=== PATIENT | female | born 1980 | race Caucasian/White ===

== ENCOUNTER 2020-12-29 12:31 | Outpatient (REF) | payer SELFPAY | END 2020-12-29 12:32 | disposition home or self-care (01) | LOC: HO.HAP 12:31 | PROVIDERS: Visit Provider Family Medicine | DX: Z46.1 Encounter for fitting and adjustment of hearing aid (principal); H90.3 Sensorineural hearing loss, bilateral | CPT/HCPCS: 99499; V5299 ==

== ENCOUNTER 2021-08-30 14:06 | Outpatient (REF) | payer SELFPAY | END 2021-08-30 14:07 | disposition home or self-care (01) | LOC: HO.HAP 14:06 | PROVIDERS: Visit Provider Family Medicine | DX: Z13.89 Encounter for screening for other disorder (principal) ==

== ENCOUNTER 2022-01-10 09:56 | Outpatient (REF) | payer SELFPAY | END 2022-01-10 09:57 | disposition home or self-care (01) | LOC: HO.HAP 09:56 | PROVIDERS: Visit Provider Family Medicine | DX: Z46.1 Encounter for fitting and adjustment of hearing aid (principal); H90.3 Sensorineural hearing loss, bilateral | CPT/HCPCS: 92593; 99499 ==

== ENCOUNTER 2022-08-30 12:57 | Outpatient (REF) | payer SELFPAY ==
--- NOTE | 2022-08-30 14:54 | MHC.AU.HA3 ---
Hearing Instrument Follow-Up- Binaural Date of Visit: 08/30/22 Right Ear: Make, Model, Color, Serial Number: Oticon Dynamo SP 8 BTE SN: [id number] Color: Silver [employer] Lean Manufacturing Specialist Repair Warranty: Battery Size: 13 Earmold/Dome/CShell/SlimTip:Microsonic Canal Shell Dispensed By: [facility] Date of Fittin11/14/2016 Left Ear: Make, Model, Color, Serial Number: Oticon Dynamo SP 8 BTE SN: [id number] Color: Silver [employer] Lean Manufacturing Specialist Repair Warranty: Battery Size: 13 Earmold/Dome/CShell/SlimTip: Microsonic Canal Shell Dispensed By: [facility] Date of Fittin11/14/2016 Follow-Up Summary: Cindy returned for routine hearing aid maintenance. Her hearing aids and earmolds were cleaned, microphones vacuumed, and tubing replaced. A listening check demonstrated that the hearing aids are in good working order. Cindy inquired about new hearing aids. Briefly discussed options including Oticon Xceed and Phonak Anastasiia. Cindy reported that she will likely be ready to purchase new hearing aids next year hoping to trial both Oticon and Phonak as she has done in the past. Advised that she would need updated hearing evaluation first. Recommendations: Hearing instrument maintenance in 6 months, or sooner if needed. Recommendations (Other): Cindy will request a doctor's order for a hearing test from her primary care physician when she is ready to begin the process for new hearing aids. Diagnosis Code(s): Primary Diagnosis: H90.3 Bilateral Sensorineural Hearing Loss Signature: Provider: Reese Prasad, [facility]
== END 2022-08-30 12:58 | disposition home or self-care (01) ==
LOC: HO.HAP 12:57
PROVIDERS: Visit Provider Family Medicine
DX: Z46.1 Encounter for fitting and adjustment of hearing aid (principal); H90.3 Sensorineural hearing loss, bilateral
CPT/HCPCS: 92593

== ENCOUNTER 2023-07-06 13:57 | Outpatient (REF) | payer SELFPAY | END 2023-07-06 13:58 | disposition home or self-care (01) | LOC: HO.HAP 13:57 | PROVIDERS: Visit Provider Family Medicine | DX: Z46.1 Encounter for fitting and adjustment of hearing aid (principal); H90.3 Sensorineural hearing loss, bilateral | CPT/HCPCS: 92593 ==

== ENCOUNTER 2023-09-15 09:34 | Outpatient (REF) | payer OTHER, SELFPAY ==
--- NOTE | 2023-09-25 13:45 | MHC.AU.HA3 ---
Hearing Instrument Follow-Up- Binaural Date of Visit: 09/15/23 Right Ear: Make, Model, Color, Serial Number: Oticon Dynamo SP 8 BTE SN: [id number] Color: Silver Huddleston Pneumatic Drum Sander Repair Warranty: 12/04/2019 Pneumatic Drum Sander Loss and Damage Warranty: 12/04/2019 Battery Size: 13 Earmold/Dome/CShell/SlimTip:Microsonic Canal Shell Dispensed By: [facility] Date of Fittin11/14/2016 Left Ear: Make, Model, Color, Serial Number: Oticon Dynamo SP 8 BTE SN: [id number] Color: Silver [employer]udd[employer]eston Pneumatic Drum Sander Repair Warranty: 12/04/2019 Pneumatic Drum Sander Loss and Damage Warranty: 12/04/2019 Battery Size: 13 Earmold/Dome/CShell/SlimTip: Microsonic Canal Shell Dispensed By: [facility] Date of Fittin11/14/2016 Follow-Up Summary: Cindy returned for an updated hearing test to start the process for new hearing aids due to the age of her current pair. She has previously trialed both Oticon and Phonak hearing aids when purchasing new devices and inquired about that process again. Programmed loaner Oticon Xceed BTEs. Ran real ear measures; however, reprogrammed based on Cindy's perception and more similarly to her current Dynamo BTEs. Also provided loaner ConnectClip to trial as Cindy was looking for a remote microphone for her daughter to wear in the back seat while she is driving. Instructed on use. Paired her hearing aids to her cell phone as well. Cindy will email in a couple weeks with an update regarding her experience with the newer Oticon hearing aids. She also inquired about trialing Phonak - will need to request Anastasiia L UPs from [employer] (requested from [employer] surgical sales representative on 09/15/23). Cindy also wanted new ear molds as her current molds are beginning to tear. Impressions taken, bilaterally, without incident (in hold drawer). Due to time constraints, unable to discuss pricing. Will need to provide quote for ear molds before ordering and for hearing aids pending chosen terrazzo worker helper and technology level. Recommendations: Cindy will email to update on her experience with the Oticon loaner hearing aids and an appointment will be scheduled once the new Phonak loaner hearing aids arrive. Diagnosis Code(s): Primary Diagnosis: H90.3 Bilateral Sensorineural Hearing Loss Signature: Provider: Reese Prasad, [facility]
== END 2023-09-15 09:35 | disposition home or self-care (01) ==
LOC: HO.SH 09:34
PROVIDERS: Visit Provider Registered Nurse
DX: Z01.118 Encounter for examination of ears and hearing with other abnormal findings (principal); H90.3 Sensorineural hearing loss, bilateral
CPT/HCPCS: 92557

== ENCOUNTER 2023-11-10 14:56 | Outpatient (REF) | payer SELFPAY ==
--- NOTE | 2023-11-13 11:10 | MHC.AU.HA3 ---
Hearing Instrument Follow-Up- Binaural Date of Visit: 11/10/23 Right Ear: Make, Model, Color, Serial Number: Oticon Dynamo SP 8 BTE SN: [id number] Color: Silver [employer] Athletic Shoe Designer Repair Warranty: 12/04/2019 Athletic Shoe Designer Loss and Damage Warranty: 12/04/2019 Battery Size: 13 Earmold/Dome/CShell/SlimTip:Microsonic Canal Shell Dispensed By: [facility] Date of Fittin11/14/2016 Left Ear: Make, Model, Color, Serial Number: Oticon Dynamo SP 8 BTE SN: [id number] Color: Silver [employer] Athletic Shoe Designer Repair Warranty: 12/04/2019 Athletic Shoe Designer Loss and Damage Warranty: 12/04/2019 Battery Size: 13 Earmold/Dome/CShell/SlimTip: Microsonic Canal Shell Dispensed By: [facility] Date of Fittin11/14/2016 Follow-Up Summary: Cindy reported the new Oticon hearing aids have been difficult to adjust to for several reasons - 1. Cannot tell the difference between P1 and P2; 2. Difficulty self-regulating her own voice; 3. Hearing worse 1-on-1 but better in group; 4. Weird choices on what to amplify (sometimes too loud - background music in store; other times missing things - daughter calling from another room). Looking at programming, P1 was fully directional which may have been contributing to some of the difficulties. Changed directionality in all programs making each program increasingly more directional. She loves the bluetooth capabilities but has a difficult time differentiating when the hearing aids are connected or not connected to her cellphone. With all that, Cindy also wanted to trail the Phonak Anastasiia devices. Programmed Phonak devices with P1, P2, and P3 with increasing noise management settings. Discussed rechargeability and functions of multi-function button (i.e., volume control, program change, mute, on/off). Cindy kept the Oticon hearing aids and ConnectClip to continue trial, comparing to Phonak devices. Fit new ear molds - reportedly tighter than current pair. Because of this, Cindy opted to continue to use her old ear molds during this hearing aid trial to minimize number of variables. She has the new ear molds to keep when she is ready. Advised of six month remake warranty on ear molds. Recommendations: An additional follow up will be scheduled pending Cindy's decision regarding new hearing aids. Diagnosis Code(s): Primary Diagnosis: H90.3 Bilateral Sensorineural Hearing Loss Signature: Provider: Reese Prasad, [facility]
== END 2023-11-10 14:57 | disposition home or self-care (01) ==
LOC: HO.HAP 14:56
PROVIDERS: Visit Provider Registered Nurse
DX: Z46.1 Encounter for fitting and adjustment of hearing aid (principal); H90.3 Sensorineural hearing loss, bilateral
CPT/HCPCS: V5264

== ENCOUNTER 2024-01-05 14:56 | Outpatient (REF) | payer SELFPAY | END 2024-01-05 14:57 | disposition home or self-care (01) | LOC: HO.HAP 14:56 | PROVIDERS: Visit Provider Family Medicine | DX: Z13.89 Encounter for screening for other disorder (principal) ==

== ENCOUNTER 2024-02-21 13:05 | Outpatient (REF) | payer SELFPAY ==
--- NOTE | 2024-02-21 15:24 | MHC.AU.HA2 ---
Hearing Instrument Fitting- Adult- Binaural Date of Visit: 02/21/24 Hearing Instruments Dispensed: Right Ear: Make, Model, Color, Serial Number: [facility] Laurent L90-UP SN: [id number] Color: Silver [employer] Access Assoc Repair Warranty: 02/21/2027 Access Assoc Loss and Damage Warranty: 02/21/2027 [facility] Service Plan: OPTED OUT Battery Size: 675 Earmold/Dome/CShell/SlimTip: Microsonic Canal Shell Left Ear: Make, Model, Color, Serial Number: Sylwia Laurent L90-UP SN: [id number] Color: Silver [employer] Access Assoc Repair Warranty: 02/21/2027 [employer] Loss and Damage Warranty: 02/21/2027 [facility] Service Plan: OPTED OUT Battery Size: 675 Earmold/Dome/CShell/SlimTip: Microsonic Canal Shell Accessories/Assistive Technology: Lester Table Bj II SN: [id number] Warranty: 02/21/2026 Summary of Fitting: Returned all loaner hearing aids and ConnectClip. Fit new hearing aids, programmed to loaner settings. Increased microphone sensitivity slightly in streaming program, otherwise, no adjustments needed. Uploaded Lester receivers into hearing aids and dispensed Lester Table Bj. Instructed on use. Table Bj remote control not functioning - Called [facility] who recommended sending Remote Control in for repair. Cindy opted to trial the Table Bj without the remote to determine if it is even beneficial for her. Sent remote control to [facility]. Will mail to Cindy upon arrival. Cindy did not feel a follow up was necessary at this time - she will email with update, as needed. Recommendations: Hearing Instrument maintenance in 6 months, or sooner if needed. Please call our clinic with any questions or concerns. Diagnosis Code(s): Primary Diagnosis: H90.3 Bilateral Sensorineural Hearing Loss Signature: Provider: Reese Prasad, [facility]
== END 2024-02-21 13:06 | disposition home or self-care (01) ==
LOC: HO.HAP 13:05
PROVIDERS: Visit Provider Family Medicine
DX: Z46.1 Encounter for fitting and adjustment of hearing aid (principal); H90.3 Sensorineural hearing loss, bilateral
CPT/HCPCS: 92590; 92700; V5261; V5267

== ENCOUNTER 2024-06-03 09:32 | Outpatient (REF) | payer SELFPAY | END 2024-06-03 09:33 | disposition home or self-care (01) | LOC: HO.HAP 09:32 | PROVIDERS: Visit Provider Family Medicine | DX: Z46.1 Encounter for fitting and adjustment of hearing aid (principal) | CPT/HCPCS: V5267 ==

== ENCOUNTER 2024-10-31 12:40 | Outpatient (REF) | payer SELFPAY ==
--- OUTSIDE RECORDS SUMMARY | 2024-10-31 15:05 | XMS_ITS | Patient Health Record ---
Author Organization [facility] Address [address] [place] [address] Care Team Providers Care Hoop Bender Tank Name Role Phone NO, PCP Primary Care Provider Unavailabl e Reason For Referral No Information Medications Medication SIG (Take, Route, Frequency, Duration) Notes Start Date End Date Status Reglan 5 MG as directed Orally e very 6 hours as needed for 5 days 08/13/2018 Active Plan Of Treatment Pending Test Test Name Order Date IV FLUIDS- Intravenous Infusion, Hydrati on (up to 1 hour) 08/13/2018 IV FLUIDS- Intravenous infus ion, hydration; each additional hour, the additional time has to be greater than 30 minutes 08/13/2018 Insurance Providers Payer Name Payer Address Payer Phone Subscriber Number Group Number Insured Name Patient Relationship to Insured Coverage Start Date Coverage End Date [employer] P [employer] PATTI [id number] [place] [address] [id number] Cindy Dumas Self - patient is the insured Medical (General) History Medical History History ICD Code Anemia Surgical History Surgery Date(Month/Year) pieces bones was breaking 2017
== END 2024-10-31 12:41 | disposition home or self-care (01) ==
LOC: HO.HAP 12:40
PROVIDERS: Visit Provider Family Medicine
DX: Z13.89 Encounter for screening for other disorder (principal)